=== PATIENT | male | born 1970 | race Caucasian/White ===

== ENCOUNTER 2024-01-15 10:47 | Outpatient (CLI) | payer OTHER, SELFPAY | END 2024-01-15 10:48 | disposition home or self-care (01) | LOC: ANHAUDIO 10:49 | PROVIDERS: Visit Provider Otolaryngology | DX: H93.13 Tinnitus, bilateral (principal); H90.3 Sensorineural hearing loss, bilateral | CPT/HCPCS: 92557; 92567 ==